=== PATIENT | female | born 2000 ===

== ENCOUNTER 2021-11-08 12:45 | Emergency (ER) | payer OTHER ==
[2021-11-08 14:05] LABS: BLOOD UREA NITROGEN,BUN 15 mg/dL (7.0-18.0); CHLORIDE,CL 103 mmol/L (98-107); GLUCOSE RANDOM 84 mg/dL (74-106); POTASSIUM,K 3.7 mmol/L (3.5-5.1); SODIUM,NA 139 mmol/L (136-145)
== END 2021-11-08 14:35 | disposition home or self-care (01) ==
LOC: MW.ED 12:45
DX: R20.2 Paresthesia of skin (principal); T50.2X1A Poisoning by carbonic-anhydrase inhibitors, benzothiadiazides and other diuretics, accidental (unintentional), initial encounter
CPT/HCPCS: 36415; 80053; 83735; 85025; 93005; 99284-25

== ENCOUNTER 2023-04-08 23:26 | Emergency (ER) | payer BC ==
[2023-04-08] MEDS: Lidocaine 2% 5 ML SDV INJECT ONE (23:54)
[2023-04-09] MEDS ORDERED: Sodium Chloride 0.9% 10 ML Syringe FLUSH PRN
[2023-04-09] MEDS ORDERED: Sodium Chloride 0.9% 1,000 ML IV ONE
[2023-04-09] MEDS ORDERED: Ketorolac 30 MG/ML SDV IVPUSH ONE
[2023-04-09] MEDS ORDERED: Metoclopramide 10 MG/2 ML SDV IVPUSH ONE
[2023-04-09] MEDS ORDERED: diphenhydrAMINE 50 MG/ML SDV IVPUSH ONE
[2023-04-09] MEDS: Sodium Chloride 0.9% 2.5 ML Syringe FLUSH PRN ×2 (00:09→00:10)
[2023-04-09] MEDS: Lidocaine 2% 5 ML SDV INJECT ONE (00:13)
== END 2023-04-09 01:23 | disposition home or self-care (01) ==
LOC: MW.ED 23:26
DX: G93.2 Benign intracranial hypertension (principal)
CPT/HCPCS: 96361; 96374; 96375; 99283; J1200; J1885; J2765; J7030; 99284; J3490

== ENCOUNTER 2023-04-15 14:44 | Emergency (ER) | payer BC ==
[2023-04-15] MEDS ORDERED: Metoclopramide 10 MG/2 ML SDV IVPUSH ONE (16:22)
[2023-04-15 16:27] LABS: BASOPHILS PERCENT AUTO 0.2 % (0.0-1.5); EOSINOPHILS ABSOLUTE AUTO 0.2 K/uL (0.0-0.7); EOSINOPHILS PERCENT AUTO 1.4 % (0.0-7.0); HEMATOCRIT 36.8 % (36.0-46.0); HEMOGLOBIN 12.5 g/dL (12.0-16.0); LYMPHOCYTES ABSOLUTE AUTO 2.9 K/uL (0.6-2.4); LYMPHOCYTES PERCENT AUTO 22.1 % (16.0-40.0); MEAN CORPUSCULAR HEMOGLOBIN 31.6 pg (27.0-32.0); MEAN CORPUSCULAR VOLUME 92.9 fL (80.0-98.0); MONOCYTES ABSOLUTE AUTO 0.4 K/uL (0.0-0.8); MONOCYTES PERCENT AUTO 3.1 % (0.0-15.0); NEUTROPHILS ABSOLUTE AUTO 9.6 K/uL (1.4-5.7); NEUTROPHILS PERCENT AUTO 73.2 % (48.0-80.0); NRBC ABSOLUTE 0 K/uL; PLATELET COUNT,PLT 262 K/uL (150-400); RED BLOOD CELL COUNT 3.96 M/uL (4.30-5.90); WHITE BLOOD CELL COUNT,WBC 13.04 K/uL (4.0-11.0)
[2023-04-15] MEDS ORDERED: Sodium Chloride 0.9% 500 ML IV SCH ×2 (16:30→18:00)
[2023-04-15 16:57] LABS: A/G RATIO 0.8 (0.9-1.6); ALBUMIN 3.2 g/dL (3.4-5.0); BILIRUBIN TOTAL 0.4 mg/dL (0.2-1.0); CALCIUM 8.6 mg/dL (8.5-10.1); CARBON DIOXIDE,CO2 19.7 mmol/L (21.0-32.0); CREATININE 0.9 mg/dL (0.6-1.0); EST CRCL DRUG DOSING (CG) 85.98 mL/min; POTASSIUM,K 3.3 mmol/L (3.5-5.1); PROTEIN TOTAL,TP 7.4 g/dL (6.4-8.2)
[2023-04-15] MEDS ORDERED: HYDROmorphone 1 MG/ML Syringe IVPUSH ONE (17:50)
[2023-04-15] MEDS ORDERED: Sodium Chloride 0.9% 1,000 ML IV ONE (17:50)
[2023-04-15] MEDS ORDERED: HYDROmorphone 1 MG/ML Syringe ONE (18:18)
[2023-04-15] MEDS ORDERED: Lidocaine 1% 5 ML VIAL ONE (18:18)
[2023-04-15] MEDS ORDERED: Morphine 4 MG/ML Syringe IVPUSH ONE (19:29)
[2023-04-15] MEDS ORDERED: Magnesium Sulfate (4.06 MEQ/ML) 5 GM/10 ML SDV IV ONE (19:30)
[2023-04-15] MEDS ORDERED: Magnesium Sulfate/Water 2 GM in Premix Bag 1 BAG IV ONE (19:38)
[2023-04-15 20:20] LABS: APPEARANCE CSF CLEAR; COLOR,CSF COLORLESS; RBC,CSF 0 /uL (0-0); WBC,CSF 1 /uL (0-5)
== END 2023-04-15 21:27 | disposition home or self-care (01) ==
LOC: MW.ED 14:44
DX: R51.9 Headache, unspecified (principal)
CPT/HCPCS: 36415; 62270; 70450; 80053; 82945; 84157; 84702; 85025; 87070; 87205; 89050; 93005; 96365; 96375; 99284; J1170; J2270; J3475; J7030; J7040; 93010